=== PATIENT | male | born 1985 | race Caucasian/White ===

== ENCOUNTER 2017-05-21 12:36 | Emergency (ER) | payer OTHER ==
[2017-05-21 12:39] VITALS: BP 166/103; PULSE 109; RESP 20; TEMP 97.7; O2SAT 96
[2017-05-21] MEDS ORDERED: LIDOCAINE HCL 1% 20 ML VIAL INFIL ONE (13:15)
[2017-05-21] MEDS ORDERED: TETANUS/DIPHTHERIA TOXOID ADULT 0.5 ML VIAL IM ONE (13:15)
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
== END 2017-05-21 14:29 ==
LOC: PHEFT 12:36
DX: S01.112A Laceration without foreign body of left eyelid and periocular area, initial encounter (principal); Z23 Encounter for immunization; I10 Essential (primary) hypertension; Y04.0XXA Assault by unarmed brawl or fight, initial encounter
CPT/HCPCS: 12011; 90471; 90714